=== PATIENT | female | born 1975 | race Caucasian/White ===

== ENCOUNTER 2016-09-30 09:04 | Emergency (ER) | payer OTHER ==
[2016-09-30 09:32] VITALS: BP 128/85
--- NOTE | 2016-09-30 09:37 | UC ---
Skin Complaint HPI - HPI Summary HPI Summary: boils left upper arm x 5 days was seen at [facility] , s/p I&D, placed on Bactrim and Augmentin. no fever, no chills, - History of Current Complaint Chief Complaint: UCSkin Time Seen by Provider: 09/30/16 09:19 Stated Complaint: INSECT BITE Hx Obtained From: Patient Hx Last Menstrual Period: 09/01/16 ?: No Onset/Duration: Gradual Onset, Lasting Days - 5, Still Present Timing: Constant Onset Severity: Moderate Current Severity: Moderate Location: Other - left upper arm Character: Swelling, Pain, Redness, Raised, Painful Aggravating: Touch Alleviating: Nothing Associated Signs & Symptoms: Positive: Tenderness. Negative: Nausea, Vomiting, Drainage, Red Streaks - Allergy/Home Medications Allergies/Adverse Reactions: Allergies Allergy/AdvReac Type Severity Reaction Status Date / Time Citalopram [From Celexa] Allergy Rash Verified 09/30/16 09:12 Lansoprazole [From Prevacid] Allergy Rash Verified 09/30/16 09:12 Home Medications: Home Medications Sulfamethox/Trimethoprim DS* [Bactrim DS 800/160 TAB*] 1 tab PO BID 09/30/16 [ History Confirmed 09/30/16] Review of Systems Constitutional: Negative Eyes: Negative ENT: Negative All Other Systems Reviewed And Are Negative: Yes PMH/Surg Hx/FS Hx/Imm Hx Previously Healthy: Yes - Surgical History Surgical History: None - Family History Known Family History: Positive: None Negative: Cardiac Disease, Hypertension, Diabetes - Social History Alcohol Use: None Substance Use Type: None Smoking Status (MU): Never Smoked Tobacco - Immunization History Most Recent Influenza Vaccination: none Physical Exam Triage Information Reviewed: Yes Appearance: Well-Appearing, No Pain Distress, Well-Nourished Vital Signs: Initial Vital Signs Temp 99.4 F 09/30/16 09:14 Pulse 81 09/30/16 09:14 Resp 14 09/30/16 09:14 BP 128/85 09/30/16 09:14 Pulse Ox 99 09/30/16 09:14 Vital Signs Reviewed: Yes Eyes: Positive: Conjunctiva Clear ENT: Positive: Normal ENT inspection, Hearing grossly normal, Pharynx normal Neck: Positive: Supple, Nontender, No Lymphadenopathy Respiratory: Positive: Chest non-tender, Lungs clear, Normal breath sounds Cardiovascular: Positive: RRR, No Murmur, Pulses Normal Skin: Positive: Other - + abscess left upper arm s/p I&D 3 days ago, + granulation tissue, + erythema, swollen, tender to touch Course/Dx - Diagnoses Provider Diagnoses: abscess left upper arm Discharge - Discharge Plan Condition: Stable Disposition: HOME Patient Education Materials: Abscess (ED) Referrals: CAROL Colin [Primary Care Provider] - 3 Days Additional Instructions: please cont. with Augmentin and Bactrim ds use warm compresses, Tylenol as needed for pain follow up in 3 days for wound check , sooner if getting worse
== END 2016-09-30 09:36 | disposition home or self-care (01) ==
LOC: UCCORT 09:04
DX: L02.414 Cutaneous abscess of left upper limb (principal)
CPT/HCPCS: 99211; G0463

== ENCOUNTER 2017-05-20 07:59 | Emergency (ER) | payer OTHER ==
[2017-05-20 08:42] VITALS: BP 138/86
--- NOTE | 2017-05-20 09:07 | UC ---
Respiratory Complaint HPI - HPI Summary HPI Summary: Cough, congestion, sore throat for about 5 days. no myalgias or fever. No rashes or swelling. She denies lung disease or smoking. - History of Current Complaint Chief Complaint: UCRespiratory Stated Complaint: COLD SYMPTOMS Time Seen by Provider: 05/20/17 08:55 Hx Obtained From: Patient Hx Last Menstrual Period: 03/2017 Onset/Duration: Gradual Onset, Lasting Days Timing: Constant Severity Initially: Moderate Severity Currently: Moderate Pain Intensity: 0 Character: Cough: Productive Aggravating Factors: Deep Breaths, Recumbent Position Alleviating Factors: OTC Meds, Upright Position, Spontaneous Resolution Associated Signs And Symptoms: Positive: Pleuritic Chest Pain, URI, Nasal Congestion, Hoarseness, Sinus Discomfort. Negative: Fever, Chills, Calf Pain, Calf Swelling - Allergies/Home Medications Allergies/Adverse Reactions: Allergies Allergy/AdvReac Type Severity Reaction Status Date / Time citalopram Allergy Rash Verified 05/20/17 08:31 lansoprazole Allergy Rash Verified 05/20/17 08:31 Home Medications: Home Medications D-Methorphan/PE/Acetaminophen [Marva-Morrison Plus Day Col] 1 cap PO Q4H PRN 05/20 [History Confirmed 05/20/17] Phenyleph/Acetaminophn/Doxylam [Sinus Daytime/Nighttime] 2 cap PO ONCE PRN 05/20 [History Confirmed 05/20/17] PMH/Surg Hx/FS Hx/Imm Hx Previously Healthy: No - depression. - Surgical History Surgical History: None - Family History Known Family History: Positive: None Negative: Cardiac Disease, Hypertension, Diabetes - Social History Alcohol Use: None Substance Use Type: None Smoking Status (MU): Never Smoked Tobacco - Immunization History Most Recent Influenza Vaccination: none Review of Systems ENT: Sore Throat, Sinus Congestion, Sinus Pain/Tenderness Respiratory: Cough All Other Systems Reviewed And Are Negative: Yes Physical Exam Triage Information Reviewed: Yes Appearance: Well-Appearing, No Pain Distress, Well-Nourished Vital Signs: Initial Vital Signs Temp 98.7 F 05/20/17 08:37 Pulse 85 05/20/17 08:37 Resp 22 05/20/17 08:37 BP 138/86 05/20/17 08:37 Pulse Ox 98 05/20/17 08:37 Vital Signs Reviewed: Yes Eyes: Positive: Conjunctiva Clear ENT: Positive: Pharyngeal erythema, Nasal congestion, TMs normal, Uvula midline. Negative: TM bulging, TM dull, TM red, Tonsillar swelling, Tonsillar exudate Neck: Positive: Supple, Nontender, No Lymphadenopathy. Negative: Nuchal Rigidity Respiratory: Positive: Lungs clear, Normal breath sounds, No respiratory distress, No accessory muscle use. Negative: Respiratory distress, Decreased breath sounds, Accessory muscle use, Crackles, Rhonchi, Stridor, Wheezing Cardiovascular: Positive: No Murmur, Pulses Normal Abdomen Description: Positive: No Organomegaly, Soft. Negative: Distended, Guarding Musculoskeletal: Positive: ROM Intact, No Edema Neurological: Positive: Alert, Muscle Tone Normal. Negative: Fatigued Psychological: Positive: Age Appropriate Behavior Skin: Negative: rashes UC Diagnostic Evaluation - Laboratory O2 Sat by Pulse Oximetry: 98 Respiratory Course/Dx - Course Course Of Treatment: URI symptoms without signs of bacterial infection/ pneumonia. She will start z pack if symptoms do not improve. - Differential Dx/Diagnosis Provider Diagnoses: uri viral. Discharge - Discharge Plan Condition: Good Disposition: HOME Prescriptions: Azithromyxin CANDY (NF) [Z-Candy (Zithromax) 250 mg tabs #6] 2 tab PO .TODAY, THEN 1 DAILY #6 tab Patient Education Materials: Upper Respiratory Infection (ED) Referrals: CAROL Colin [Primary Care Provider] - Additional Instructions: Start decongestants and nasal irrigation now. Take the z pack only if symptoms have not shown signs of improvement by day 9
== END 2017-05-20 09:21 | disposition home or self-care (01) ==
LOC: UCCORT 07:59
DX: J06.9 Acute upper respiratory infection, unspecified (principal)
CPT/HCPCS: 99212; G0463